=== PATIENT | male | born 1990 | race Caucasian/White ===

== ENCOUNTER 2019-12-11 18:10 | Emergency (ER) | payer OTHER ==
[2019-12-11] MEDS ORDERED: Adacel (T-DAP) 0.5 ML SYRINGE ONE (20:16)
[2019-12-11] MEDS ORDERED: Lidocaine 1% (PF) 30 ML VIAL ONE (20:16)
[2019-12-11] MEDS ORDERED: Ondansetron ODT 4 MG TAB ONE (20:40)
--- NOTE | 2019-12-11 20:44 | RAD ---
Exam:Right hand 3 views HISTORY: Puncture wound to the palm. COMPARISON: None FINDINGS: No radiopaque foreign body. No fracture, cortical irregularity. No periosteal reaction. Pre served joint spaces. IMPRESSION: No fracture. No radiopaque foreign body.
[2019-12-11] MEDS ORDERED: Bacitracin 1 PK ONE (22:10)
== END 2019-12-11 22:13 | disposition home or self-care (01) ==
LOC: ERS 18:10
DX: S61.411A Laceration without foreign body of right hand, initial encounter (principal); F17.220 Nicotine dependence, chewing tobacco, uncomplicated; Z71.6 Tobacco abuse counseling; W26.9XXA Contact with unspecified sharp object(s), initial encounter
CPT/HCPCS: 12001; 90471; 90715; 99406; J2001; Q0162